=== PATIENT | male | born 1955 | race Caucasian/White ===

== ENCOUNTER 2025-02-05 08:57 | Outpatient (OUT) | payer MEDICARE, SELFPAY ==
--- OUTSIDE RECORDS SUMMARY | 2025-02-05 09:04 | XMS_ITS | Encounter Summary ---
Author Organization [facility] Address [address] [facility] [place] [address] Care Team Providers Care Rotary Helper Name Role Phone Forrest Cano MD Primary Care Provider Forrest Cano MD Unavailable [phone] Encounter Details Date Type Department Care Team (Late st Contact Info) Description 01/30/2024 Abstract [facility] [place] [facility] [address] [facility] 110 [place] [address] Forrest Cano MD [address] [facility] 110 [place] [address] Social History Tobacco Use Types Packs/Day Years Used Date Smoking Tobacco: Never Smokeless Tobacco: Never Alcohol Use Standard Drinks/Week Comments Not Currently 0 (1 standard drink = 0.6 oz pur e alcohol) Sex and Gender Information Value Date Recorded Sex Assigned at Not on file Legal Sex Male 6:51 PM EDT Gender Identity Male 02/29/2024 11:44 AM EDT Sexual Orientation Not on file documented as of this encounter Plan of Treatment Not on file documented as of this encounter Visit Diagnoses Not on filedocumented in this encounter Care Teams Rotary Helper Relationship Specialty Start Date End Date Forrest Cano MD [address] [facility] 110 [place] [address] PCP - General Internal Medicine 12/05/22 Forrest Cano MD [address] [facility] 110 [place] [address] [facility] 06/19/23 05/18/73 documented as of this encounter
--- OUTSIDE RECORDS SUMMARY | 2025-02-05 09:04 | XMS_ITS | Clinical Summary ---
Author Organization [facility] Address [address] [place] [address] Phone Care Team Providers Care Eeler Name Role Phone Forrest Cano MD Primary Care Provider [phone] Allergies Active Allergy Reactions Criticality Noted Date Comments Penicillins Diarrhea 2023 Medications aspirin 81 mg EC tablet Take 1 tablet (81 mg) by mouth once daily. Active cetirizine (ZyrTEC) 10 mg tablet Take 1 tablet (10 mg) by mouth once daily. Active lansoprazole (Prevacid) [address] capsule Take 1 capsule (30 mg) by mouth once daily. Active metoprolol succinate XL (Toprol-XL) 25 mg 24 hr tablet Take 1 tablet (25 mg) by mouth once daily. Active simvastatin (Zocor) 20 mg tablet Take 1 tablet (20 mg) by mouth once daily at bedtime. 1 Active losartan (Cozaar) 100 mg tabletIndications :Essential hypertension,Athe rosclerosis of creek coronary artery without angina pectoris, unspecified whether creek or transplanted heart Take 1 tablet (100 mg) by mouth once daily. 90 tablet 3 3 Active ranolazine (Ranexa) 500 mg 12 hr tabletIndications :Essential hypertension Take 1 tablet (500 mg) by mouth every 12 hours. 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 Essential hypertension 2023 Hyperlipidemia 2023 Stage 3a chronic kidney disease (Multi) 05/04/20 23 Social History Tobacco Use Types Packs/Day Years Used Date Smoking Tobacco: Never Smokeless Tobacco: Never Alcohol Use Standard Drinks/Week Comments Never 0 (1 standard drink = 0.6 oz pur e alcohol) Sex and Gender Information Value Date Recorded Sex Assigned at Not on file Legal Sex Male 8:25 AM EST Gender Identity Not on file Sexual Orientation Not on file Last Filed Vital Signs Vital Sign Reading Time Taken Comments Blood Pressure 124/72 02/22/2024 12:31 PM EDT Pulse 64 02/22/2024 12:31 PM EDT Temperature - - Respiratory Rate - - Oxygen Saturation - - Inhaled Oxygen Concentration - - Weight 102 kg (224 lb 12.8 oz) 02/22/2024 12:31 PM EDT Height 177.8 cm (5' 10 ) 02/22/2024 12:31 PM EDT Body Mass Index 32.26 02/22/2024 12:31 PM EDT Plan of Treatment Upcoming Encounters Date Type Department Care Team (Late st Contact Info) Description 02/20/2025 3:15 PM EDT Office Visit [facility] [address] [facility] 250 [place] [address] Laurel Michele MD 917 [facility] 130 [place] [address] Health Maintenance Due Date Last Done Comments CT Colonography 1953 Colonoscopy 1953 Colorectal Cancer Screening 1953 FIT-DNA (Cologuard) 1953 FIT 1953 Lipid Panel 1953 Medicare Annual Wellness Vis it (AWV) 1953 Sigmoidoscopy 1953 MMR Vaccines (1 of 1 - Standard series) 1954 Hepatitis C Screening 1971 CKD: Urine Protein Screening 1972 DTaP/Tdap/Td Vaccines (1 - Tdap) 1975 Zoster Vaccines (1 of 2) 2003 RSV High Risk: (Elderly (60+ ) or Population) (1 - Risk 60-74 years 1-dose series) 2013 Pneumococcal Vaccine (2 of 2 - PCV) 05/14/2019 05/14/2018, 03/19/2018 COVID-19 Vaccine (3 - 2023-2 5 season) 2024 09/18/2020, 08/21/2020 Influenza Vaccine (#1) 2025 7, 03/21/2017 HIB Vaccines Aged Out No longer eligi ble based on patient's age to complete this topic HPV Vaccines Aged Out No longer eligi ble based on patient's age to complete this topic Hepatitis A Vaccines Aged Out No long er eligible based on patient's age to complete this topic Hepatitis B Vaccines Aged Out No long er eligible based on patient's age to complete this topic IPV Vaccines Aged Out No longer eligi ble based on patient's age to complete this topic Meningococcal Vaccine Aged Out No christi branden eligible based on patient's age to complete this topic Rotavirus Vaccines Aged Out No longer eligible based on patient's age to complete this topic Insurance [employer] MEDICARE [employer] MEDICARE Care Teams Eeler Relationship Specialty Start Date End Date Forrest Cano MD [address] [facility] 110 [place] [address] PCP - General 12/01/22
--- OUTSIDE RECORDS SUMMARY | 2025-02-05 09:04 | XMS_ITS | Encounter Summary ---
Author Organization [facility] Address [address] [facility] [place] [address] Care Team Providers Care Director Consumer Name Role Phone Forrest Cano MD Unavailable [phone] Forrest Cano MD Primary Care Provider [phone] Forrest Cano MD Unavailable [phone] Encounter Details Date Type Department Care Team (Late st Contact Info) Description 12/25/2022 Abstract [facility] [place] [facility] [address] [facility] 110 [place] [address] Forrest Cano MD [address] [facility] 110 [place], [place] [id number] Social History Tobacco Use Types Packs/Day Years [...] on filedocumented in this encounter Care Teams Director Consumer Relationship Specialty Start Date End Date Forrest Cano MD [address] [facility] 110 [place], [place] [id number] PCP - C 06/19/21 04/18/23 Forrest Cano MD [address] [facility] 110 [place] [address] PCP - General Internal Medicine 12/05/22 Forrest Cano MD [address] [facility] 110 [place] [address] PCP - [facility] 06/19/23 05/18/73 documented as of this encounter
--- OUTSIDE RECORDS SUMMARY | 2025-02-05 09:04 | XMS_ITS | Encounter Summary ---
Author Organization [facility] Address [address] [facility] [place] [address] Care Team Providers Care Manager Mba Name Role Phone Forrest Cano MD Unavailable [phone] Forrest Cano MD Primary Care Provider [phone] Forrest Cano MD Unavailable [phone] Encounter Details Date Type Department Care Team (Late st Contact Info) Description 02/24/2023 Abstract [facility] [place] [facility] [address] [facility] 110 [place] [address] Forrest Cano MD [address] [facility] 110 [place], [place] [id number] Social History Tobacco Use Types Packs/Day Years [...] on filedocumented in this encounter Care Teams Manager Mba Relationship Specialty Start Date End Date Forrest Cano MD [address] [facility] 110 [place], [place] [phone] PCP - C 06/19/21 04/18/23 Forrest Cano MD [address] [facility] 110 [place] [address] PCP - General Internal Medicine 12/05/22 Forrest Cano MD [address] [facility] 110 [place] [address] PCP - [facility] 06/19/23 05/18/73 documented as of this encounter
--- OUTSIDE RECORDS SUMMARY | 2025-02-05 09:04 | XMS_ITS | Encounter Summary ---
Author Organization [facility] Address [address] [facility] [address] Care Team Providers Care Orange Grower Name Role Phone Forrest Cano MD Primary Care Provider [phone] Forrest Cano MD Unavailable [phone] Encounter Details Date Type Department Care Team (Late st Contact Info) Description 02/22/2024 Abstract [facility] [place] [facility] [address] [facility] 110 [place] [address] Forrest Cano MD [address] [facility] [address] [place] [address] Social History Tobacco Use Types Packs/Day Years [...] on filedocumented in this encounter Care Teams Orange Grower Relationship Specialty Start Date End Date Forrest Cano MD [address] [facility] 110 [place] [address] PCP - General Internal Medicine 12/05/22 Forrest Cano MD [address] [facility] [address] [place] [address] [facility] 06/19/23 05/18/73 documented as of this encounter
--- OUTSIDE RECORDS SUMMARY | 2025-02-05 09:04 | XMS_ITS | Encounter Summary ---
Author Organization [facility] Address [address] [place] [address] Phone Care Team Providers Care On Air Personality Name Role Phone Laurel Michele MD Unavailable Forrest Cano MD Primary Care Provider [phone] Encounter Details Date Type Department Care Team (Late st Contact Info) Description 12/23/2019 Orders Only [facility] [address] [place] [address] Conversion, Onbase Social History Tobacco Use Types Packs/Day Years Used Date Smoking Tobacco: Never Assessed Sex and Gender Information Value Date Recorded Sex Assigned at Not on file Legal Sex Male 8:25 AM EST Gender Identity Not on file Sexual Orientation Not on file documented as of this encounter Plan of Treatment Upcoming Encounters Date Type Department Care Team (Late st Contact Info) Description 02/20/2025 3:15 PM EDT Office Visit [place] [address] [facility] 250 [place] [address] Laurel Michele MD 917 [facility] 130 [place], [place] [address] Scheduled Orders Name Type Priority Associated Diagnoses Orde r Schedule OUTSIDE LAB SCAN Lab Ordered: 12/23/2019 documented as of this encounter Visit Diagnoses Not on filedocumented in this encounter Care Teams On Air Personality Relationship Specialty Start Date End Date Laurel Michele MD 917 [facility] 130 [place] [address] PCP - [employer] PCP 06/19/22 09/16/22 Forrest Cano MD 112 [facility] 110 [place] [address] PCP - General 12/01/22 documented as of this encounter
--- OUTSIDE RECORDS SUMMARY | 2025-02-05 09:04 | XMS_ITS | Clinical Summary ---
Author Organization [facility] Address [id number] [address] [place] [address] Care Team Providers Care Manager Change Name Role Phone Forrest Cano MD Primary Care Provider [phone] Allergies Active Allergy Reactions Criticality Noted Date Comments Cefuroxime Axetil Other (See Comments) 04/05/20 Levofloxacin Other (See Comments) 04/05/2021 Penicillins 06/02/2022 Medications aspirin 81 mg Take 1 tablet (81 mg total) by mouth in the morning. Active losartan (COZAAR) 100 mg tablet Take 1 tablet (100 mg total) by mouth in the morning. Active ranolazine (RANEXA) 500 mg 12 hr tablet Take 1 tablet (500 mg total) by mouth in the morning and 1 tablet (500 mg total) before bedtime. Active simvastatin (ZOCOR) 20 mg tablet Take 1 tablet (20 mg total) by mouth nightly. Active cetirizine (ZyrTEC) 10 mg tablet Take 1 tablet (10 mg total) by mouth in the morning. Active lansoprazole (PREVACID) 15 mg capsule Take 1 capsule (15 mg total) by mouth in the morning and at bedtime. Active acidophilus-pectin, citrus 25 million cell -100 mg tablet Take 1 tablet by mouth daily with breakfast. Active metoprolol succinate XL (TOPROL XL) 25 mg 24 hr tablet Take 1 tablet (25 mg total) by mouth in the morning. Active acetaminophen (TYLENOL) 325 mg tablet Take 2 tablets (650 mg total) by mouth every 6 (six) hours as needed for pain. 30 tablet 2 Active levETIRAcetam (KEPPRA) 500 mg tablet Take 1 tablet (500 mg total) by mouth every 12 (twelve) hours. 12 tablet 2 Active tiZANidine (ZANAFLEX) 2 mg tablet Take 1 tablet (2 mg total) by mouth every 6 (six) hours as needed for muscle spasms. 20 tablet 2 Active ondansetron ODT (ZOFRAN ODT) 4 mg disintegrating tablet Dissolve 1 tablet (4 mg total) on tongue every 8 (eight) hours as needed for nausea or vomiting. 20 tablet 2 Active Active Problems Problem Noted Date Diagnosed Date Fall, initial encounter 06/02/2022 Immunizations Immunization Administration Dates Next Due COVID-19, mRNA, LNP-S, PF, 100mcg/0.5mL Dose 07/2020,08/21/2020 Influenza, Unspecified 04/12/2017 Pneumococcal Polysaccharide 05/14/2018 Social History Tobacco Use Types Packs/Day Years Used Date Smoking Tobacco: Never Smokeless Tobacco: Never Tobacco Cessation:Counseling Given: Not Answered Alcohol Use Standard Drinks/Week Comments Not Currently 0 (1 standard drink = 0.6 oz pur e alcohol) very rare Childcare Answer Date Recorded Childcare Unknown 11/26/2018 Employment Answer Date Recorded Employment Unknown 11/26/2018 Hunger Screening Answer Date Recorded Within the past 12 months we worried whether our food would run out before we got money to buy more. Never True 06/04/2022 Within the past 12 months th e food we bought just didn't last and we didn't have money to get more. Never True 06/04/2022 Sex and Gender Information Value Date Recorded Sex Assigned at Not on file Legal Sex Male 2:38 PM EDT Gender Identity Not on file Sexual Orientation Not on file Last Filed Vital Signs Vital Sign Reading Time Taken Comments Blood Pressure 134/71 06/04/2022 11:51 AM EST Pulse 73 06/04/2022 11:51 AM EST Temperature 36.5 C (97.7 F) 06/04/2022 11:51 AM EST Respiratory Rate 17 06/04/2022 11:51 AM EST Oxygen Saturation 100% 06/04/2022 11:51 AM EST Inhaled Oxygen Concentration - - Weight 106.1 kg (234 lb) 06/03/2022 3:09 PM EST Height 177.8 cm (5' 10 ) 06/03/2022 3:09 PM EST Body Mass Index 33.58 06/03/2022 3:09 PM EST Plan of Treatment Health Maintenance Due Date Last Done Comments Depression Screening 1965 Tobacco Screening 1965 DTaP,Tdap and Td Vaccines (1 - Tdap) 1972 Zoster (Shingles) Vaccine (1 of 2) 2003 Fall Risk Screening 2018 Adult BMI Screening 06/03/2023 06/03/2022 COVID-19 Vaccine ( season) 02/18/202407/2020, 08/21/2020 Influenza Vaccine 02/17/2025 04/12/2017, 04/12/2017 Medical Devices Not on file Insurance MEDICARE HMO/PPO - GENERIC PLAN Advance Directives * Full Code (Latest Code Status on File) Date Activated Date Inactivated Comments 06/02/2022 7:53 PM 06/04/2022 6:35 PM Care Teams Manager Change Relationship Specialty Start Date End Date Forrest Cano MD [address] [facility] 110 [place] [phone] PCP - General Internal Medicine 06/02/22
--- OUTSIDE RECORDS SUMMARY | 2025-02-05 09:04 | XMS_ITS | Encounter Summary ---
Author Organization [facility] Address [address] [place] [address] Care Team Providers Care Assistant Secretary Name Role Phone Forrest Cano MD Primary Care Provider [phone] Forrest Cano MD Unavailable [phone] Encounter Details Date Type Department Care Team (Late st Contact Info) Description 02/29/2024 Abstract [facility] [place] [facility] [address] [facility] 110 [place] [address] Forrest Cano MD [address] [facility] 110 [place] [address] Social History Tobacco Use Types Packs/Day Years Used Date Smoking Tobacco: Never Smokeless Tobacco: Never Alcohol Use Standard Drinks/Week Comments Not Currently 0 (1 standard drink = 0.6 oz pur e alcohol) PHQ-2 Answer Date Recorded Patient Health Questionnaire-2 Score 0 02/29/2024 Sex and Gender Information Value Date Recorded Sex Assigned at Not on file Legal Sex Male 6:51 PM EDT Gender Identity Male 02/29/2024 11:44 AM EDT Sexual Orientation Not on file documented as of this encounter Functional Status * Over the past 2 weeks, how often have you been bothered by any of the following problems? Question Answer Date of Assessment Author Little interest or pleasure in doing things Not at all 02/29/2024 11:00 AM EDT Ananya Posadas L PN Feeling down, depressed, or hopeless Not at all 02/29/2024 11:00 AM EDT Dukles, Ananya, L PN Patient Health Questionnaire -2 Score 0 02/29/2024 11:00 AM MIKYT Ananya Posadas L PN documented as of this encounter Plan of Treatment Not on file documented as of this encounter Visit Diagnoses Not on filedocumented in this encounter Care Teams Assistant Secretary Relationship Specialty Start Date End Date Forrest Cano MD [address] [facility] 110 [place] [address] PCP - General Internal Medicine 12/05/22 Forrest Cano MD [address] [facility] 110 [place] [address] PCP - [facility] 06/19/23 05/18/73 documented as of this encounter
--- OUTSIDE RECORDS SUMMARY | 2025-02-05 09:04 | XMS_ITS | Patient Health Record ---
Author Organization [facility] [place] Address [address] [place] [address] Care Team Providers Care Tank Calibrator Name Role Phone None, Unknown or Primary Care Provider Unavailab le Allergies Allergen (clinical drug ingredient) Drug/Non Drug Allergy documented on EMR Reaction Allergy Type Onset Date Status Penicillin stomach upset Drug Allergy Ac tive Reason For Referral No Information Medications Medication SIG (Take, Route, Frequency, Duration) Notes Start Date End Date Status Losartan Potassium 100 MG 1 tablet Orall y Once a day Active Lansoprazole 15 MG 1 capsule before a m eal Orally Once a day Active Cetirizine HCl 10 MG 1 tablet Orally Onc e a day Active Aspir-Low 81 MG 1 tablet Orally Once a day Active Simvastatin 20 MG 1 tablet in the even ing Orally Once a day Active Ranolazine ER 500 MG 1 tablet Orally Twi ce a day Active Metoprolol Succinate ER 25 MG 1 tablet Orally Once a day Active Social History Tobacco Use: Social History Observation Description Date Details (start date - stop date) Never Smoker NA - NA Tobacco Use/Smoking Question Answer Notes Patient is a nonsmoker Plan Of Treatment No Information Insurance Providers Payer Name Payer Address Payer Phone Subscriber Number Group Number Insured Name Patient Relationship to Insured Coverage Start Date Coverage End Date 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
--- OUTSIDE RECORDS SUMMARY | 2025-02-05 09:04 | XMS_ITS | Encounter Summary ---
Author Organization [employer] [employer] [facility] Address [id number] [address] [place] [address] Care Team Providers Care Tooth Cutter Contact Wheel Name Role Phone Forrest Cano MD Primary Care Provider [phone] Encounter Details Date Type Department Care Team (Late st Contact Info) Description 06/02/2022 Orders Only [facility] [address] [place] [phone] Transcribe, Orders Support User Pain (Primary Dx) Social History Tobacco Use Types Packs/Day Years Used Date Smoking Tobacco: Never Assessed Childcare Answer Date Recorded Childcare Unknown 11/26/2018 [...] on file Sexual Orientation Not on file COVID-19 Exposure Response Date Recorded In the last month, have you been in contact with someone who was confirmed or suspected to have Coronavirus / COVID-19? No / Unsure 06/02/2022 9:42 PM EST documented as of this encounter Functional Status documented as of this encounter Mental Status * Question Answer Entry Date Author Overall Cognitive Status [facility] 06/04/2022 11:25 AM EST Juani Fulton, OTR/L * Question Answer Entry Date Author Overall Cognitive Status [facility] 06/03/2022 9:40 AM EST Kath Crystal, CCC-CLAY WORKER documented in this encounter Plan of Treatment Not on file documented as of this encounter Results * CT brain without contrast (06/02/2022 4:35 PM EST) us Scanning Provider External IMG CT ORDERABLES Fin al Result * CT cervical spine without contrast (06/02/2022 4:30 PM EST) us Scanning Provider External IMG CT ORDERABLES Fin al Result documented in this encounter Visit Diagnoses Diagnosis Pain- Primary Generalized pain documented in this encounter Care Teams Tooth Cutter Contact Wheel Relationship Specialty Start Date End Date Forrest Cano MD [address] [address] PCP - General Internal Medicine 06/02/22 documented as of this encounter
--- OUTSIDE RECORDS SUMMARY | 2025-02-05 09:04 | XMS_ITS | Encounter Summary ---
Author Organization [facility] Address [address] [place] [address] Phone Care Team Providers Care Bias Machine Operator Helper Name Role Phone Laurel Michele MD Unavailable Forrest Cano MD Primary Care Provider [phone] Encounter Details Date Type Department Care Team (Late st Contact Info) Description 02/01/2022 Orders Only [facility] [address] [place] [address] Conversion, Onbase Social History Tobacco Use Types [...] Description 02/20/2025 3:15 PM EDT Office Visit [facility] [address] [facility] 250 [place] [address] Laurel Michele MD 917 [facility] 130 [place], [place] [id number] Scheduled Orders Name Type Priority Associated Diagnoses Orde r Schedule OUTSIDE LAB SCAN Lab Ordered: 02/01/2022 documented as of this encounter Visit Diagnoses Not on filedocumented in this encounter Care Teams Bias Machine Operator Helper Relationship Specialty Start Date End Date Laurel Michele MD 917 [facility] 130 [place] [address] PCP - [employer] PCP 06/19/22 09/16/22 Forrest Cano MD [address] [address] PCP - General 12/01/22 documented as of this encounter
--- OUTSIDE RECORDS SUMMARY | 2025-02-05 09:04 | XMS_ITS | Clinical Summary ---
Author Organization [facility] Healthcare Address [address] [place] [address] Care Team Providers Care Appian Developer Name Role Phone Forrest Cano MD Primary Care Provider [phone] Forrest Cano MD Unavailable [phone] Allergies Active Allergy Reactions Criticality Noted Date Comments Cefuroxime 12/04/2022 Other Reaction(s): diarrhea Levofloxacin 12/04/2022 Other Reaction(s): Diarrhea, Stomach Pain Medications ASPIRIN 81 MG chewable tablet 1 (one) time each day at the same time. Active cetirizine (ZyrTEC) 10 MG tablet 1 (one) time each day at the same time. Active lansoprazole (Prevacid) [address] capsule 1 capsule 1 (one) time each day at the same time. Active losartan (Cozaar) 100 MG tabletIndications:Leydi n essential hypertension Take 1 tablet (100 mg) by mouth Daily 100 tablet 3 05/09/20 24 Active simvastatin (Zocor) 20 MG tabletIndications:Pure hypercholesterolemia Take 1 tablet (20 mg) by mouth 1 (one) time each day at the same time 90 tablet 3 06/14/20 24 025 Active ranolazine (Ranexa) 500 MG 12 hr tabletIndications:Ather osclerosis of [place] tribe coronary artery of [place] heart without angina pectoris Take 1 tablet (500 mg) by mouth in the morning and 1 tablet (500 mg) before bedtime. 200 tablet 12/04/19 25 Active metoprolol succinate XL (Toprol-XL) 25 MG 24 hr tabletIndications:Leydi n essential hypertension Take 1 tablet (25 mg) by mouth Daily 100 tablet 3 01/17/20 25 Active metoprolol succinate XL (Toprol-XL) 25 MG 24 hr tabletIndications:Leydi n essential hypertension Take 1 tablet (25 mg) by mouth Daily 100 tablet 3 12/04/19 25 025 Discontin ued(Reord er) Active Problems Problem Noted Date Diagnosed Date Atherosclerosis of [place] tribe co ronary artery of [place] heart without angina pectoris 12/02/2022 Diverticulosis of colon 12/02/2022 Erectile dysfunction 12/02/2022 Hiatal hernia 12/02/2022 Intracranial hemorrhage 12/02/2022 Lumbago with sciatica, right side 12/02/2022 Lumbar disc disorder 12/02/2022 Nontoxic uninodular goiter 12/02/2022 Prediabetes 12/02/2022 Pure hypercholesterolemia 12/02/2022 Spondylosis of cervical susy on without myelopathy or radiculopathy 12/02/2022 Benign essential hypertension 10/20/2008 Uric acid nephrolithiasis 10/20/2008 Irritable bowel syndrome 10/20/2008 Other allergic rhinitis 10/20/2008 Encounters Date Type Department Care Team Description 01/16/2025 Refill [facility] [address] [facility] [address] [place] [address] Ananya Posadas LPN Benign essential hypertension 12/03/2024 [facility] [address] [place] [address] [place] [address] Forrest Cano MD Atherosclerosis of [place] tribe coronary artery of [place] heart without angina pectoris ; Benign essential hypertension from Last 3 Months Immunizations Immunization Administration Dates Next Due Influenza, seasonal, intradermal, preservative f ree 04/12/2017 Pneumococcal Polysaccharide PPSV23 05/14/2018 Family History Medical History Relation Name Comments Heart disease Father Hypertension Father Inflammatory bowel disease Mother Lung cancer Mother Relation Name Status Comments Father Mother Social History Tobacco Use Types Packs/Day Years [...] AM EDT Sexual Orientation Not on file Last Filed Vital Signs Vital Sign Reading Time Taken Comments Blood Pressure 132/74 02/29/2024 11:31 AM EDT Pulse 62 02/29/2024 11:31 AM EDT Temperature - - Respiratory Rate - - Oxygen Saturation 96% 02/29/2024 11:31 AM EDT Inhaled Oxygen Concentration - - Weight 102 kg (224 lb) 02/29/2024 11:31 AM EDT Height 177.8 cm (5' 10 ) 02/29/2024 11:31 AM EDT Body Mass Index 32.14 02/29/2024 11:31 AM EDT Plan of Treatment Health Maintenance Due Date Last Done Comments CT Colonography 1955 Colonoscopy 1955 FIT 1955 FOBT 1955 Sigmoidoscopy 1955 Pneumococcal Vaccine: 65+ Years (2 of 2 - PCV) 019 05/14/2018 Medicare Annual Wellness (AWV) 02/28/2025 02/29/2024 Colorectal Cancer Screening 12/27/2025 FIT-DNA 12/27/2025 12/27/2022 Influenza Vaccine Discontinued 04/12/2017 Procedures Procedure Name Priority Date/Time Associated Diagnosis Comments LAB COLOGUARD COLON CANCER SCREEN Routine 12/27/2022 10:30 AM EDT Screening for colorectal cancer from Last 3 Months or Most Recently Relevant to Health Maintenance Results * Cologuard?? colon cancer screening (12/27/2022 10:30 AM EDT) NONINV COLON CA DNA+OCC BLD SCRN STL-IMP Negative Negative 01/02/2023 1:25 PM EDT HTP (CLIA #:[id number]) Comment: NEGATIVE TEST RESULT. A negative Cologuard result indicates a low likelihood that a colorectal cancer (CRC) or advanced adenoma (adenomatous polyps with more advanced pre-malignant features) is present. The chance that a person with a negative Cologuard test has a colorectal cancer is less than 1 in 1500 (negative predictive value >99.9%) or has an advanced adenoma is less than 5.3% (negative predictive value 94.7%). These data are based on a prospective cross-sectional study of 10,000 individuals at average risk for colorectal cancer who were screened with both Cologuard and colonoscopy. (Abram Tran et al, N Engl J Med 2014;370(14):9215-2183) The normal value (reference range) for this assay is negative. COLOGUARD RE-SCREENING RECOMMENDATION: Periodic colorectal cancer screening is an important part of preventive healthcare for asymptomatic individuals at average risk for colorectal cancer. Following a negative Cologuard result, the [place] Cancer Society and U.S. Multi-Society Task Force screening guidelines recommend a Cologuard re-screening interval of 3 years. References: [place] Cancer Society Guideline for Colorectal Cancer Screening: https://www.cancer.org/cancer/jetlb-jeyjrq-lxhkqs/xumrntece-dgvdqmzdo-tpyclst/ac s-rec ommendations.html.; Cesar DK, Vikki DINERO, Adeola RodgersK, Colorectal Cancer Screening: Recommendations for Physicians and Patients from the U.S. Multi-Society Task Force on Colorectal Cancer Screening , Am J Gastroenterology 2017; 112:0502-9192. TEST DESCRIPTION: Composite algorithmic analysis of stool DNA-biomarkers with hemoglobin immunoassay. Quantitative values of individual biomarkers are not reportable and are not associated with individual biomarker result reference ranges. Cologuard is intended for colorectal cancer screening of adults of either sex, 45 years or older, who are at average-risk for colorectal cancer (CRC). Cologuard has been approved for use by the U.S. FDA. The performance of Cologuard was established in a cross sectional study of average-risk adults aged 50-84. Cologuard performance in patients ages 45 to 49 years was estimated by sub-group analysis of near-age groups. Colonoscopies performed for a positive result may find as the most clinically significant lesion: colorectal cancer [4.0%], advanced adenoma (including sessile serrated polyps greater than or equal to 1cm diameter) [20%] or non- advanced adenoma [31%]; or no colorectal neoplasia [45%]. These estimates are derived from a prospective cross-sectional screening study of 10,000 individuals at average risk for colorectal cancer who were screened with both Cologuard and colonoscopy. (Abram Tran et al, N Engl J Med 2014;370(14):5109-0010.) Cologuard may produce a false negative or false positive result (no colorectal cancer or precancerous polyp present at colonoscopy follow up). A negative Cologuard test result does not guarantee the absence of CRC or advanced adenoma (pre-cancer). The current Cologuard screening interval is every 3 years. ([place] Cancer Society and U.S. Multi-Society Task Force). Cologuard performance data in a 10,000 patient pivotal study using colonoscopy as the reference method can be accessed at the following location: www.[employer].Fixational/results. Additional description of the Cologuard test process, warnings and precautions can be found at www.cologuard.com. Stool specimen (specimen) 12/27/2022 10:30 AM EDT 12/28/2022 5:13 PM EDT us Forrest Cano MD LAB [facility]LEC[facility] DI[facility]NOST[facility] Final Result .lark (CLIA #:[id number]) [address] [place] [id number], HTP (CLIA #:[id number]) [address] [place] [id number] from Last 3 Months or Most Recently Relevant to Health Maintenance Insurance [facility] MEDIC[facility] Care Teams Appian Developer Relationship Specialty Start Date End Date Forrest Cano MD [address] [facility] [address] [place] [address] PCP - General Internal Medicine 12/05/22 Forrest Cano MD [address] [facility] [address] [place] [address] PCP - [facility] 06/19/23 05/18/73
--- OUTSIDE RECORDS SUMMARY | 2025-02-05 09:04 | XMS_ITS | Encounter Summary ---
Author Organization [facility] Address [address] [place] [address] Phone Care Team Providers Care Bricklayer Supervisor Name Role Phone Laurel Michele MD Unavailable Forrest Cano MD Primary Care Provider [phone] Encounter Details Date Type Department Care Team (Late st Contact Info) Description 02/11/2021 Orders Only [facility] [address] [place] [address] Conversion, Onbase Social History Tobacco Use Types [...] Description 02/20/2025 3:15 PM EDT Office Visit [facility] [address] [facility] [address] [place] [address] Laurel Michele MD [address] [facility] [address] [place], [place] [id number] Scheduled Orders Name Type Priority Associated Diagnoses Orde r Schedule OUTSIDE LAB SCAN Lab Ordered: 02/11/2021 documented as of this encounter Visit Diagnoses Not on filedocumented in this encounter Care Teams Bricklayer Supervisor Relationship Specialty Start Date End Date Laurel Michele MD [address] [facility] [address] [place] [address] PCP - [employer] PCP 06/19/22 09/16/22 Forrest Cano MD [address] [address] PCP - General 12/01/22 documented as of this encounter
--- OUTSIDE RECORDS SUMMARY | 2025-02-05 09:04 | XMS_ITS | Encounter Summary ---
Author Organization [facility] Address [address] [place] [address] Phone Care Team Providers Care Burglar Alarm Installer Name Role Phone Laurel Michele MD Unavailable Forrest Cano MD Primary Care Provider [phone] Encounter Details Date Type Department Care Team (Late st Contact Info) Description 07/12/2019 Orders Only [facility] [address] [place] [address] Conversion, Onbase Social History Tobacco Use Types [...] Description 02/20/2025 3:15 PM EDT Office Visit [facility] [address] [facility] [address] [place] [address] Laurel Michele MD [address] [facility] [address] [place], [place] [id number] Scheduled Orders Name Type Priority Associated Diagnoses Orde r Schedule OUTSIDE LAB SCAN Lab Ordered: 07/12/2019 documented as of this encounter Visit Diagnoses Not on filedocumented in this encounter Care Teams Burglar Alarm Installer Relationship Specialty Start Date End Date Laurel Michele MD [address] [facility] [address] [place] [address] PCP - [employer] PCP 06/19/22 09/16/22 Forrest Cano MD [address] [facility] [address] [place] [address] PCP - General 12/01/22 documented as of this encounter
[2025-02-05 10:35] LABS: Alanine Aminotransferase 15 U/L (16-63); Albumin Globulin Ratio 0.9; Albumin Level 3.2 g/dL (3.4-5.0); Alkaline Phosphatase 54 U/L (46-116); Anion Gap 9.0; Aspartate Amino Transferase 16 U/L (15-37); Blood Urea Nitrogen 25.0 mg/dL (7.0-18.0); Calcium 9.0 mg/dL (8.5-10.1); Carbon Dioxide 28.7 mmol/L (21.0-32.0); Chloride 108 mmol/L (98-107); Estimated GFR (African America >60 (>=60 mL/min/1.73m^2); Estimated GFR (Non-African Ame 53 (>=60 mL/min/1.73m^2); Globulin 3.7 g/dL; Glucose 96 mg/dL (74-106); Potassium 4.7 mmol/L (3.5-5.1); Sodium 141 mmol/L (136-145); Total Protein 6.9 g/dL (6.4-8.2)
[2025-02-05 11:18] LABS: Cholesterol 131 mg/dL (<=200); HDL Cholesterol 46 mg/dL (40-60); Triglycerides 93 mg/dL (<=150); VLDL CHOLESTEROL 18.6 mg/dL
== END 2025-02-05 08:58 | disposition home or self-care (01) ==
LOC: LAB 09:01
PROVIDERS: PCP Internal Medicine; Visit Provider Internal Medicine Interventional Cardiology
DX: E78.2 Mixed hyperlipidemia (principal); I10 Essential (primary) hypertension; Z85.46 Personal history of malignant neoplasm of prostate
CPT/HCPCS: 36415; 80053; 80061; 84153

== ENCOUNTER 2025-02-05 09:03 | Outpatient (OUT) | payer MEDICARE, SELFPAY ==
[2025-02-05 11:29] LABS: Prostate Specific Antigen Dx <0.13 ng/mL (<=4.00)
== END 2025-02-05 09:04 | disposition home or self-care (01) ==
PROVIDERS: PCP Internal Medicine; Visit Provider Urology
DX: Z85.46 Personal history of malignant neoplasm of prostate (principal)
CPT/HCPCS: 36415; 84153